=== PATIENT | male | born 1955 | race Caucasian/White ===

== ENCOUNTER 2024-04-22 19:22 | Observation (INO) | payer MEDICARE, SELFPAY ==
--- NOTE | ~2024-04-22 | US_ITS ---
EXAMINATION: US abdomen limited DATE: 04/23/2024 13:39 INDICATION: Abnormal liver function tests. TECHNIQUE: Multiple grayscale and Doppler ultrasound images of the abdomen were obtained. COMPARISON: None FINDINGS: The visualized portions of the head and body of the pancreas are normal. The liver is raciel l without focal lesion. There is normal flow in main portal vein. The gallbladder is absent. The comm on duct is normal and measures 5 mm. IMPRESSION: 1. Normal right upper quadrant ultrasound status post cholecystectomy. Reviewed, dictated and finalized at location A. [facility]
--- NOTE | ~2024-04-22 | MR_ITS ---
EXAMINATION: MR brain/brain stem wo con DATE: 04/23/2024 13:59 INDICATION: Increasing confusion and hallucinations. TECHNIQUE: Magnetic resonance imaging (MRI) of the brain and brainstem was performed without intraven ous contrast. Sequences included sagittal and axial T1-weighted SE, axial diffusion-weighted FS SE, a xial 3D SWAN, axial T2-weighted FLAIR, and axial T2-weighted FSE. Apparent diffusion coefficient (ADC ) maps were created. COMPARISON: Head CT dated 04/22/2024 FINDINGS: There are no areas of restricted diffusion to suggest acute infarction. No acute intracranial hemorrh age or abnormal intracranial mass lesion. There are a few scattered foci of signal loss on the suscep tibility weighted imaging consistent with old blood products related to chronic microhemorrhage such as in the setting of hypertension. There are scattered areas of nonspecific increased T2-weighted sig nal intensity in the cerebral white matter, predominantly involving the deep and periventricular whit e matter which is within normal limits for age and likely sequela of chronic small vessel ischemic di sease. There are no intraparenchymal signal abnormalities seen on the other pulse sequences. The vent ricles are symmetric and normal in size. There are no abnormal extra-axial fluid collections. Flow vo ids are seen in the cerebral arteries on the T2-weighted sequences consistent with their expected pat ency. Visualized orbits and soft tissues are unremarkable. Bilateral mastoid effusions. IMPRESSION: 1. No acute intracranial process. 2. A few small foci of susceptibility artifact consistent with sequela of chronic microhemorrhage suc h as in the setting of hypertension. 3. Mild scattered nonspecific white matter T2 hyperintensity which is within normal limits for age an d likely sequela of chronic small vessel ischemic disease. 4. Bilateral mastoid effusions. Reviewed, dictated and finalized at location L. CUTTER IMPRESSION: 1. No acute intracranial process. 2. A few small foci of susceptibility artifact consistent with sequela of chron ic microhemorrhage such as in the setting of hypertension. 3. Mild scattered nonspecific white matter T2 hyperintensity which is within no rmal limits for age and likely sequela of chronic small vessel ischemic disease . 4. Bilateral mastoid effusions.
--- NOTE | ~2024-04-22 | XR_ITS ---
CHEST RADIOGRAPH CLINICAL HISTORY: Cough . COMPARISON: None available TECHNIQUE: Single portable view of the chest. FINDINGS The cardiomediastinal silhouette is unremarkable. The lungs are clear. Visualized osseous structures and soft tissues are unremarkable. IMPRESSION: No focal infiltrate or effusion. Reviewed, dictated and finalized at location A. [facility] [employer]
--- NOTE | ~2024-04-22 | CT_ITS ---
History: Altered mental status with hallucinations PROCEDURE: CT head without contrast. COMPARISON: None TECHNIQUE: Axial imaging of the head performed from the skull base to the vertex without IV contrast. Sagittal a nd coronal reformations obtained. DLP: 681 mGy-cm FINDINGS: The ventricles are enlarged. The dilatation of the ventricles is proportional to the degree of sulcal prominence, not uncommon in the senescent brain. There is no mass, mass effect or midline shift. There is no abnormal extra-axial fluid collection or intracranial hemorrhage. Visualized paranasal sinuses are clear. The mastoid air cells are well aerated. No acute displaced fractures within the overlying cranium. Impression: No acute intracranial hemorrhage or suspicious mass effect. Reviewed, dictated and finalized at location A. UNDERLAY MACHINE OPERATOR Impression: No acute intracranial hemorrhage or suspicious mass effect.
[2024-04-22 19:31] VITALS: BP 134/72; PULSE 92; RESP 16; TEMP 36.3; O2SAT 95
--- NOTE | 2024-04-22 19:37 | ECG_ITS ---
Test Date: 2024-04-22 19:45:22 Measurements Intervals [place] Rate: 85 P: 55 ND: 199 QRS: 46 QRSD: 94 T: 52 QT: 374 QTc: 447 Interpretive Statements SINUS RHYTHM No previous ECG available for comparison Electronically Signed On 04-23-2024 13:55:55 TAX TECHNICIAN by Xavier Duque M.D.
[2024-04-22 19:43] LABS: Glucose Point of Care 83 mg/dl (65-105)
--- OUTSIDE RECORDS SUMMARY | 2024-04-22 19:51 | XMS_ITS ---
Author Organization [facility] Address [address] [facility] [address] [place] [address] Care Team Providers Care Glass Etcher Helper Name Role Phone Aminah Zapata [phone] REASON FOR VISIT letter Social History Sex Assigned At : Social History Observation Description Sex Assigned At Male Encounters Encounter Location Date Provider Diagnosis [facility] [address] [facility] [address] [place] [address] 12/12/2023 Aminah Zapata Plan Of Treatment No Information Progress Notes * ANALILIA PEREZDOB:1955 (68 yo M)Acc No.[id number]:12/12/2023 Patient: ANALILIA ALMENDAREZ :1955 A ge:68 Y S ex:Male Address:[address] [place] [address], [id number] * true * Date: Generated for August bridges/Clayton/eTransmitting on: 0 04/22/2024 07:51 PM MASTER OF CEREMONIES
--- OUTSIDE RECORDS SUMMARY | 2024-04-22 19:51 | XMS_ITS ---
Author Organization [email or web address] Address [address] [address] Care Team Providers Care Insecticide Expert Name Role Phone BennyAminah gonzalez Ike [phone] Medications Medication SIG (Take, Route, Frequency, Duration) Notes Start Date End Date Status Abilify 20 MG 1 tablet Oral Once a day for 90 days 03/13/2023 Active Social History Sex Assigned At : Social History Observation Description Sex Assigned At Male Encounters Encounter Location Date Provider Diagnosis [facility] [facility] [address] [facility] [address] [address] 01/29/2024 Aminah Zapata Bipolar disorder, current episode depressed, severe, without psychotic features F31.4 Assessments Encounter Date Diagnosis (ICD Code) Assessment Notes Treatment Notes Treatment Clinical Notes Section Notes 01/29/2024 Bipolar disorder, current episode depressed, severe, without psychotic features (ICD-10 - F31.4) Plan Of Treatment Medication Medication Name Sig Start Date Stop Date Notes Abilify 20 MG 1 tablet Oral Once a day for 90 days 024 Progress Notes * ANALILIA PEREZDOB:1955 (68 yo M)Acc No.[id number]:01/29/2024 Patient: ANALILIA ALMENDAREZ :1955 A ge:68 Y S ex:Male Address:[address] [place] [address], [address] * Refills Refill Abilify Tablet, 20 MG, Oral, 90, 1 tablet, Once a day, 90 days, Refills=0 * true * Date: Generated for August bridges/Clayton/Cheleitting on: 0 04/22/2024 07:51 PM CHAIRMAN AND CHIEF EXECUTIVE OFFICER
[2024-04-22 19:59] LABS: Basophils Percent Auto 0.5 % (0.2-1.2); Eosinophils Percent Auto 0.5 % (0-4.4); Hematocrit 40.2 % (42.0-52.0); Hemoglobin 13.5 g/dL (14.0-18.0); Immature Granulocyte Absolute 0.06 K/mm3 (0.00-0.031); Immature Granulocyte Percent A 0.7 % (0-0.5); Lymphocytes Absolute Auto 1.08 K/mm3 (0.9-3.2); Lymphocytes Percent Auto 12.8 % (18.3-44.2); Mean Corpuscular HGB Conc 33.6 g/dl (32-36); Mean Corpuscular Hemoglobin 32.2 pg (26-34); Mean Corpuscular Volume 95.9 fl (80-100); Mean Platelet Volume 9.6 fl (7.4-10.4); Monocytes Absolute Auto 0.5 K/mm3 (0.1-0.6); Monocytes Percent Auto 6.3 % (2.6-8.5); Neutrophils Absolute Auto 6.7 K/mm3 (1.3-6.7); Neutrophils Percent Auto 79.2 % (45.5-73.1); Platelet Count Result 171 k/mm3 (150-375); Red Blood Count 4.19 M/mm3 (4.6-6.20); White Blood Count 8.5 K/mm3 (4.5-10.0)
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
[2024-04-22] MEDS: THIAMINE 500 MG/NS 100 ML 500 MG/100 ML BAG 200 MG IVPB (20:07)
[2024-04-22 20:08] LABS: Ammonia < 9 umol/L (9-30)
[2024-04-22 20:09] LABS: Ethanol < 10 mg/dL (<10); INR 1.1; Prothrombin Time 14.1 Seconds (11.1-14.7)
[2024-04-22 20:17] LABS: Lactic Acid Reflex 0.9 mmol/L (0.7-2.0)
[2024-04-22 20:17] LABS: Alanine Aminotransferase 44 U/L (6-50); Albumin Level 4.4 g/dL (3.5-5.1); Alkaline Phosphatase 94 U/L (38-126); Anion Gap 14 mmol/L (4-12); Aspartate Amino Transferase 209 U/L (17-59); Bilirubin,Total 1.6 mg/dL (0.2-1.3); Blood Urea Nitrogen 30 mg/dL (9-20); Calcium 8.9 mg/dL (8.4-10.2); Carbon Dioxide 24 mmol/L (22-30); Chloride 102 mmol/L (98-107); Estimated CRCL calculation 39 ml/min; Estimated Glomerular Filt Rate 50; Glucose 86 mg/dL (65-110); Lipase 52 U/L (23-300); Magnesium 2.2 mg/dL (1.6-2.3); Potassium 4.8 mmol/L (3.4-5.0); Sodium 140 mmol/L (137-145)
[2024-04-22 20:25] LABS: NT Pro B Type Natriuretic Pept 311 pg/mL (19.9-100); Troponin I 0.059 ng/mL (0.000-0.034)
[2024-04-22 20:33] LABS: Influenza A QL RT-PCR Negative (Negative); Influenza B QL RT-PCR Negative (Negative); RSV RNA, RT-PCR Negative (Negative); SARS-CoV-2 RNA PCR Negative (Negative)
[2024-04-22 20:36] LABS: Add Urine Microscopic? YES; Appearance Urine Cloudy (Clear); Bacteria Urine None Seen /hpf; Bilirubin Urine 2+ (Negative); Blood Urine Negative (Negative); Color Urine Dark Yellow (Yellow); Glucose Urine UA Negative (Negative); Hyaline Casts Urine Present /lpf; Ketones Urine 3+ mg/dL (Negative); Leukocyte Esterase Ur Trace LEU/UL (Negative); Nitrate Urine Negative (Negative); Protein Urine 1+ mg/dL (Negative); RBC Urine 0-2 /hpf (0-2); Specific Grav Ur 1.029 (1.001-1.035); Squamous Epithelial Cell Urine Occasional /hpf (Few)
[2024-04-22 20:37] LABS: Barbiturate Screen Urine Negative (Negative); Benzodiazepines Screen Urine Negative (Negative)
[2024-04-22 20:38] LABS: Amphetamine Screen Urine Negative (Negative); Cocaine Screen Urine Negative (Negative); Methadone Screen Urine Negative (Negative); Opiate Screen Urine Negative (Negative); Phencyclidine Screen Urine Negative (Negative)
[2024-04-22 20:40] LABS: Procalcitonin 0.1 ng/mL
[2024-04-22 20:41] LABS: Base Excess ABG -2.5 mEq/l (+/-2.0); Device ROOM AIR; Fractional Inspired Oxygen 21 %; HCO3 ABG 20.5 mEq/l (22.0-26.0); Modified Allen's Test Pass; Oxygen Saturation ABG 96.8 % (95.0-100.0); Oxyhemoglobin 96.1 % THb (90.0-100.0); PCO2 ABG 30.7 mmHg (35.0-45.0); Site Drawn RIGHT RADIAL; pH ABG 7.443 (7.350-7.450)
[2024-04-22 20:47] LABS: Cannabinoid Screen Urine Negative (Negative)
[2024-04-22] MEDS: DEXTROSE 5%/0.9% SOD CHL 500 ML 100 ML IV CONT (20:47)
--- NOTE | 2024-04-22 20:54 | PCRCNOTE ---
ABG completed after ordered timeframe due to RT being with a critical patient. Nurse and Dr castrejon.
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
[2024-04-22 21:33] VITALS: BP 110/70; PULSE 86; RESP 15; O2SAT 96
[2024-04-22] MEDS: ASPIRIN 81 MG CHEWABLE TABLET 324 MG PO (22:36)
--- NOTE | 2024-04-22 22:37 | ECG_ITS ---
Test Date: 2024-04-22 22:38:01 Measurements Intervals [place] Rate: 87 P: 50 VT: 190 QRS: 49 QRSD: 93 T: 65 QT: 369 QTc: 445 Interpretive Statements SINUS RHYTHM Compared to ECG 04/22/2024 19:45:22 No significant changes Electronically Signed On 04-23-2024 13:57:44 HEAD MECHANIC by Xavier Duque M.D.
[2024-04-22 22:51] VITALS: BMI 23.6
--- NOTE | 2024-04-22 23:14 | ADMGEN ---
This patient, Augustine Rodriguez, was admitted to IMU Room 204-01. Patient/family oriented to hospital policies and general routines including ID bracelet, bed and alarms, visiting hours, pain management, procedures, bathroom and other care routines, personal items, smoking policy, room service/diet, and visiting hours. Information on how to activate the Rapid Response Team has been discussed. Patient/Family are encouraged to report perceived risks to care and to ask questions if they do not understand what they are told or what they should do.
[2024-04-22 23:24] LABS: Troponin I 0.054 ng/mL (0.000-0.034)
[2024-04-22 23:28] VITALS: BP 124/64; PULSE 90; RESP 16; TEMP 36.6; O2SAT 94
[2024-04-23] VITALS (12 sets, daily range): BP systolic 102–135; BP diastolic 61–83; PULSE 63–99; RESP 15–20; TEMP 36.3–37.2; O2SAT 94–96
--- NOTE | 2024-04-23 00:16 | ECHO_ITS ---
Patient Info Name: Augustine Rodriguez Age: 69 years : 1955 Gender: Male Ht: 69 in Wt: 160 lbs BSA: 1.88 m2 HR: 78 bpm BP: 104 / 62 mmHg Heart Rhythm: Sinus Rhythm Exam Date: 04/23/2024 9:11 AM Exam Location: Echo Lab Patient Status: Inpatient Admit Date: 04/22/2024 Staff Ordering Physician: Anushka Bennett PA-C Food Sampler: Rica Thornton RDCS Attending Provider: Franklyn Owen MD Referring Physician: Sabrina SHEETS; Exam Type: CA echo doppler color flow Study Info Indications - Elevated troponin Complete two-dimensional, color flow and Doppler transthoracic echocardiogram is performed. Summary 1. Complete two-dimensional, color flow and Doppler transthoracic echocardiogram is performed. 2. There is normal biventricular size and systolic function. 3. There is no significant valvular disease. Left Ventricle The left ventricle is normal in size and systolic function. The left ventricular ejection fraction is visually estimated to be 60-65%. Right Ventricle The right ventricle is normal in size and systolic function. Left Atria The left atrium is normal size. Right Atria The right atrium is normal size. Atrial Septum The atrial septum is not well visualized. Aortic Valve There is no echocardiographic evidence of aortic stenosis or regurgitation. Pulmonic Valve The pulmonic valve is not well visualized. There is no color Doppler evidence of pulmonic valve regurgitation. Mitral Valve The mitral valve is normal. There is no mitral regurgitation. Tricuspid Valve The tricuspid valve is grossly normal. There is trace tricuspid regurgitation. Pericardium/Pleural Pericardium is normal in appearance with no evidence for significant pericardial effusion. Inferior Vena Cava Inferior vena cava is not well visualized. Aorta The aortic root at the level of the sinus of Valsalva is dilated measuring 3.8 cm in diameter. Left Ventricular Outflow Tract Name Value Normal LVOT 2D LVOT Diameter 2.3 cm LVOT Doppler LVOT Peak Gradient 3 mmHg LVOT Mean Gradient 1 mmHg LVOT VTI 15 cm LVOT VTI/AV VTI Ratio 0.8 LVOT Stroke Volume 61 ml LVOT CO 5.5 l/min LVOT CI 2.9 l/min/m2 Pulmonic Valve Name Value Normal RVOT Doppler RVOT Peak Gradient 1 mmHg PV Doppler PV Peak Gradient 5 mmHg Mitral Valve Name Value Normal MV Doppler MV Decel [place] 366 cm/s2 MV PHT 52 ms MV Area (PHT) 4.2 cm2 4.0-5.0 MV Diastolic Function MV E Peak Velocity 66 cm/s MV A Peak Velocity 61 cm/s MV E/A 1.1 MV Decel Time 180 ms MV Annular TDI MV E/e' (Septal) 8.8 <=8.0 MV E/e' (Lateral) 6.9 <=8.0 MV E/e' (Average) 7.8 Tricuspid Valve Name Value Normal TV Regurgitation Doppler TR Peak Velocity 193 cm/s TR Peak Gradient 12 mmHg Aortic Valve Name Value Normal AV Doppler AV Peak Velocity 90 cm/s AV Peak Gradient 3 mmHg AV Mean Gradient 2 mmHg AV VTI 18 cm AV Area (Cont Eq VTI) 3.4 cm2 >=3.0 AV Area (Cont Eq Stepan) 3.7 cm2 AV Regurgitation 2D LVOT Area 4.1 cm2 Ventricles Name Value Normal LV Dimensions 2D/MM IVS Diastolic Thickness (2D) 1.2 cm 0.6-1.0 LVID Diastole (2D) 4.3 cm 4.2-5.8 LVIW Diastolic Thickness (2D) 0.7 cm 0.6-1.0 LVID Systole (2D) 3.0 cm 2.5-4.0 LVOT Diameter 2.3 cm LV Mass (2D Cubed) 126.67 g 88.00-224.00 LV Mass Index (2D Cubed) 67 g/m2 49-115 Relative Wall Thickness (2D) 0.31 LV Fractional Shortening/Ejection Fraction 2D/MM LV Fractional Shortening (2D) 30 % 25-43 LV EF (2D Teicholz) 57 % 52-72 LV Diastolic Volume (4C MOD) 103 ml LV EF (4C MOD) 56 % LV Diastolic Volume (2C MOD) 127 ml LV EF (2C MOD) 60 % LV Diastolic Volume (BP MOD) 117 ml 62-150 LV Diastolic Volume Index (BP MOD) 62 ml/m2 34-74 LV Systolic Volume (BP MOD) 51 ml 21-61 LV Systolic Volume Index (BP MOD) 27 ml/m2 11-31 LV EF (BP MOD) 56 % 52-72 LV Diastolic Length (4C) 8.4 cm LV Systolic Length (4C) 6.5 cm LV Stroke Volume (4C MOD) 58 ml Atria Name Value Normal LA Dimensions LA Volume (4C A-L) 51 ml LA Volume (BP A-L) 49 ml RA Dimensions RA Area (4C) 14.7 cm2 <=18.0 Report Signatures
[2024-04-23] MEDS: traZODone HCL 50 MG TABLET PO ×2 (00:52→20:57)
[2024-04-23 05:00] LABS: Hematocrit 38.2 % (42.0-52.0); Hemoglobin 12.5 g/dL (14.0-18.0); Mean Corpuscular HGB Conc 32.7 g/dl (32-36); Mean Corpuscular Hemoglobin 32.1 pg (26-34); Mean Corpuscular Volume 97.9 fl (80-100); Mean Platelet Volume 10.2 fl (7.4-10.4); Platelet Count Result 174 k/mm3 (150-375); White Blood Count 7.7 K/mm3 (4.5-10.0)
[2024-04-23 05:15] LABS: Alanine Aminotransferase 39 U/L (6-50); Albumin Level 4.1 g/dL (3.5-5.1); Alkaline Phosphatase 82 U/L (38-126); Anion Gap 9 mmol/L (4-12); Aspartate Amino Transferase 177 U/L (17-59); Bilirubin,Total 1.3 mg/dL (0.2-1.3); Blood Urea Nitrogen 32 mg/dL (9-20); Calcium 8.6 mg/dL (8.4-10.2); Carbon Dioxide 26 mmol/L (22-30); Chloride 105 mmol/L (98-107); Estimated CRCL calculation 59 ml/min; Estimated Glomerular Filt Rate > 60; Glucose 83 mg/dL (65-110); Magnesium 2.2 mg/dL (1.6-2.3); Potassium 4.1 mmol/L (3.4-5.0); Sodium 140 mmol/L (137-145)
[2024-04-23] MEDS: DEXTROSE 5%/0.9% SOD CHL 1,000 ML 75 ML IV CONT ×2 (05:38→23:38)
[2024-04-23 05:41] LABS: Iron 81 ug/dL (49-181)
[2024-04-23 05:50] LABS: Percent Iron Saturation 32 % (20-50)
[2024-04-23 05:52] LABS: Creatine Kinase 7381 U/L (55-170)
[2024-04-23 06:13] LABS: Hepatitis B Surface Antigen Negative (Negative)
[2024-04-23 06:16] LABS: Folic Acid 12.9 ng/mL (2.76->20)
[2024-04-23 06:19] LABS: HAV RESULT Negative (Negative); Hepatitis B Core IgM Result Negative (Negative)
[2024-04-23 06:30] LABS: Hepatitis C Virus Antibody Negative (Negative)
[2024-04-23] MEDS: THIAMINE HCL 200 MG/2 ML VIAL 100 MG IV PUSH (09:12)
[2024-04-23] MEDS: ARIPiprazole 10 MG TABLET 20 MG PO (09:12)
[2024-04-23] MEDS: ENOXAPARIN 40 MG/0.4 ML SYRINGE SUB-Q (09:12)
[2024-04-23 11:36] LABS: Glucose Point of Care 113 mg/dl (65-105)
[2024-04-23 16:39] LABS: Glucose Point of Care 155 mg/dl (65-105)
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
--- NOTE | 2024-04-23 18:15 | PC.NURSE ---
This patient, Augustine Rodriguez, was received from IMU on 04/23/24 at 1815. Patient/family oriented to unit policies and routines
[2024-04-23 18:45] LABS: Glucose Point of Care 110 mg/dl (65-105)
[2024-04-23 22:57] LABS: Glucose Point of Care 90 mg/dl (65-105)
[2024-04-24] VITALS: BP 125/91; PULSE 83; PULSE 85; RESP 18; TEMP 36.4; O2SAT 97
[2024-04-24 04:00] VITALS: PULSE 96
[2024-04-24 05:48] LABS: Glucose Point of Care 116 mg/dl (65-105)
[2024-04-24 07:52] VITALS: BP 151/61; PULSE 92; RESP 14; TEMP 36.4; O2SAT 100
[2024-04-24 08:00] VITALS: PULSE 84
[2024-04-24] MEDS: THIAMINE HCL 200 MG/2 ML VIAL 100 MG IV PUSH (08:07)
[2024-04-24] MEDS: ENOXAPARIN 40 MG/0.4 ML SYRINGE SUB-Q (08:07)
[2024-04-24] MEDS: ARIPiprazole 10 MG TABLET 20 MG PO (08:07)
[2024-04-24] MEDS: LORazepam INJ (*CRX) 2 MG/ML VIAL 1 MG IV PUSH (13:16)
--- NOTE | 2024-04-24 15:41 | PC.NURSE ---
On 04/24/24, the student, Betsy Newton, provided care and completed [facility] documentation on this patient. I have reviewed the student's documentation and agree with the findings.
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
[2024-04-24] MEDS: OLANZapine 5 MG, WATER, STERILE FOR INJECTION 2.1 ML IM (16:02)
[2024-04-24] MEDS: traZODone HCL 50 MG TABLET PO (20:13)
[2024-04-24 22:00] VITALS: BP 171/92; PULSE 130; RESP 18; O2SAT 96
[2024-04-25 01:10] LABS: Glucose Point of Care 91 mg/dl (65-105)
[2024-04-25 06:00] VITALS: BP 128/66; PULSE 100; RESP 18; TEMP 36.6; O2SAT 95
[2024-04-25 06:42] LABS: Glucose Point of Care 102 mg/dl (65-105)
[2024-04-25 08:00] VITALS: PULSE 100
--- NOTE | 2024-04-25 16:56 | PC.NURSE ---
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 Hospitalist aware of patients behavior. Patient is uncooperative with suggested care but not aggressive or combative. Sitter needed at all times as patient is up and moving around his room all day trying to exit into hallway. Spoke to daughter and POHannah Foster about patients lack of cooperation with treatment and behaviors. Patient has been observed to talk to imaginary people not in the room, going in the shower and randomly turning the shower head on to spray water on the boyd, and engage in conversations with the sitter that do not make sense.
[2024-04-25 19:47] VITALS: BP 136/86; PULSE 93; RESP 16; O2SAT 95
[2024-04-26 06:00] VITALS: BP 150/93; PULSE 111; RESP 18; O2SAT 93
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
[2024-04-26 22:00] VITALS: BP 121/71; PULSE 103; RESP 18; TEMP 36.7; O2SAT 94
[2024-04-27 06:00] VITALS: BP 142/71; PULSE 96; RESP 18; TEMP 36.6; O2SAT 92
[2024-04-27 08:19] LABS: Glucose Point of Care 115 mg/dl (65-105)
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
[2024-04-27 12:11] LABS: Glucose Point of Care 114 mg/dl (65-105)
[2024-04-27 14:00] VITALS: BP 121/82; PULSE 91; RESP 18; TEMP 36.5; O2SAT 95
[2024-04-27 17:02] LABS: Glucose Point of Care 105 mg/dl (65-105)
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
[2024-04-27] MEDS: ARIPiprazole 10 MG TABLET 20 MG PO (18:17)
[2024-04-27] MEDS: THIAMINE HCL 200 MG/2 ML VIAL 100 MG IV PUSH (18:30)
[2024-04-27 20:32] LABS: SARS-CoV-2 RNA PCR Negative (Negative)
[2024-04-27] MEDS: traZODone HCL 50 MG TABLET PO (21:24)
[2024-04-27 22:00] VITALS: BP 149/86; PULSE 118; RESP 18; TEMP 36.8; O2SAT 93
[2024-04-28 05:35] LABS: Mean Platelet Volume 9.8 fl (7.4-10.4); Platelet Count Result 202 k/mm3 (150-375)
[2024-04-28 06:00] VITALS: BP 133/70; PULSE 92; RESP 18; TEMP 36.6; O2SAT 95
[2024-04-28] MEDS: THIAMINE HCL 100 MG TABLET PO (09:16)
[2024-04-28] MEDS: ARIPiprazole 10 MG TABLET 20 MG PO (09:16)
[2024-04-28] MEDS: ENOXAPARIN 40 MG/0.4 ML SYRINGE SUB-Q (09:16)
[2024-04-28] MEDS: CITALOPRAM HYDROBROMIDE 20 MG TABLET 40 MG PO (09:16)
--- NOTE | 2024-04-28 10:03 | ECG_ITS ---
Test Date: 2024-04-28 11:38:00 Measurements Intervals [place] Rate: 90 P: 66 LA: 174 QRS: -3 QRSD: 96 T: 51 QT: 353 QTc: 432 Interpretive Statements SINUS RHYTHM Compared to ECG 04/22/2024 22:38:01 No significant changes Electronically Signed On 04-28-2024 15:02:50 CDT by Luan Johnson M.D.
[2024-04-28 10:49] LABS: Hematocrit 41.8 % (42.0-52.0); Hemoglobin 13.9 g/dL (14.0-18.0); Mean Corpuscular HGB Conc 33.3 g/dl (32-36); Mean Corpuscular Hemoglobin 32.3 pg (26-34); Mean Corpuscular Volume 97.2 fl (80-100); Red Cell Distribution Width 12.7 % (11.5-14.5); White Blood Count 6.3 K/mm3 (4.5-10.0)
[2024-04-28 11:08] LABS: Alanine Aminotransferase 29 U/L (6-50); Albumin Level 4.2 g/dL (3.5-5.1); Alkaline Phosphatase 73 U/L (38-126); Anion Gap 10 mmol/L (4-12); Aspartate Amino Transferase 43 U/L (17-59); Bilirubin,Total 0.6 mg/dL (0.2-1.3); Blood Urea Nitrogen 24 mg/dL (9-20); Calcium 8.9 mg/dL (8.4-10.2); Carbon Dioxide 26 mmol/L (22-30); Chloride 104 mmol/L (98-107); Estimated CRCL calculation 75 ml/min; Estimated Glomerular Filt Rate > 60; Glucose 156 mg/dL (65-110); Magnesium 2.1 mg/dL (1.6-2.3); Potassium 3.6 mmol/L (3.4-5.0); Sodium 140 mmol/L (137-145)
[2024-04-28 11:16] LABS: Troponin I < 0.012 ng/mL (0.000-0.034)
[2024-04-28 14:00] VITALS: BP 130/80; PULSE 94; RESP 18; TEMP 36.5; O2SAT 95
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
--- NOTE | 2024-04-28 16:31 | P.TS_ITS ---
Transfer Discharge Sum: Prov Provider Date of admission: 04/22/24 22:12 Primary care physician: Bren Lin, Admitting clinician: Milton Owen MD DS: Admitting Diagnosis Discharge Date 04/28/24 Admitting Diagnosis Confusion DS: Discharge Diagnosis Discharge Diagnosis (1) Altered mental status: Code(s): R41.82 - Altered mental status, unspecified Status: Acute (2) Elevated troponin: Code(s): R79.89 - Other specified abnormal findings of blood chemistry Status: Acute (3) Renal failure: Code(s): N19 - Unspecified kidney failure Status: Acute (4) Elevated LFTs: Code(s): R79.89 - Other specified abnormal findings of blood chemistry Status: Acute (5) Normocytic anemia: Code(s): D64.9 - Anemia, unspecified Status: Acute (6) Bipolar disorder: Code(s): F31.9 - Bipolar disorder, unspecified Status: Acute Transfer Discharge Sum: Med Medications Active and Home Medications: Home Medications aripiprazole 20 mg tablet (Abilify) 20 mg PO DAILY 04/22/24 [History Confirmed 04/22/24] citalopram 40 mg tablet 20 mg PO ONCE 04/22/24 [History Confirmed 04/22/24] trazodone 50 mg tablet 50 mg PO HS PRN sleep 04/22/24 [History Confirmed 04/22/24] naltrexone 50 mg tablet 50 mg PO QHS 04/24/24 [History Confirmed 04/24/24] Active Medications Aripiprazole (Aripiprazole 10 Mg Tablet) 20 mg PO QAM [facility] Last Admin: 04/28/24 09:16 Dose: 20 mg Citalopram Hydrobromide (Citalopram Hydrobromide 20 Mg Tablet) 40 mg PO QAM [facility] Last Admin: 04/28/24 09:16 Dose: 40 mg Enoxaparin Sodium (Enoxaparin 40 Mg/0.4 Ml Syringe) 40 mg SUB-Q DAILY BRITANY Last Admin: 04/28/24 09:16 Dose: 40 mg Thiamine HCl (Thiamine Hcl 100 Mg Tablet) 100 mg PO QAM [facility] Last Admin: 04/28/24 09:16 Dose: 100 mg Trazodone HCl (Trazodone Hcl 50 Mg Tablet) 50 mg PO HS PRN PRN Reason: sleep Last Admin: 04/27/24 21:24 Dose: 50 mg Transfer Discharge Sum: Hosp Hospital Course Hospital course: Augustine Rodriguez is a 69 year old male Time Spent with Patient Time attestation: Total time spent providing and/or coordinating transfer services: patient is poor historian does not provider any ROS, and wants to go home, to further evaluate patient had MRI of the brain did not show any acute injury but does show Mild scattered nonspecific white matter T2 hyperintensity which is within normal limits for age and likely sequela of chronic small vessel ischemic disease. Most likely patient has hypertensive encephalopathy, will continue to monitor and further recommendation to follow. on 04/23 Patient daughter who is his POA came to the hospital and gave updates. Today patient is more confused and agitated is pacing in the room does not want to sit, does not want to taked his medication, patient was given Ativan 2 mg IV 1 time keep the patient calm, patient was given zyprexa 5mg IM which did help, patient has history of bipolar refusing to take his medication, patient is again agitated and not cooperative, md do resident urgent care spoke with the patient's daughter, patient may not be able return home alone, Discussed with md do resident urgent care to possibly transfer patient [facility] I called [facility] and spoke with [facility] angel presented the case, they agree will try to transfer the patient. will wait and plan. still waiting to hear from the [facility] for tranfer, patinet is more interactive today and answers appropriately, the [facility] has requested current labs,trops and EKG, labs report are sent and waiting for the response. Patient is accepted at the [facility] will discharge today Exam Narrative: Patient is comfortable, NAD HEENT: eyes are clear and none icteric LUNGS:CTA HEART: RR S1S2 ABD: BS+, Soft and nontender Lower extremities: no edema SKIN: nonjaundiced Neuro: grossly intact. DS: Data Data Completed and Pending Labs on day of discharge: Labs from last 24 hours 04/28/24 04/27/24 04/27/24 05:11 19:48 16:55 WBC 6.3 RBC 4.30 L Hgb 13.9 L Hct 41.8 L MCV 97.2 MCH 32.3 MCHC 33.3 RDW 12.7 Plt Count 202 MPV 9.8 Sodium 140 Potassium 3.6 Chloride 104 Carbon Dioxide 26 Anion Gap 10 BUN 24 H Creatinine 0.79 Estim Creat Clear Calc 75 Estimated GFR > 60 Glucose 156 H POC Capillary Glucose 105 Calcium 8.9 Magnesium 2.1 Total Bilirubin 0.6 AST 43 ALT 29 Alkaline Phosphatase 73 Troponin I < 0.012 Total Protein 7.0 Albumin 4.2 SARS-CoV-2 RNA (RT-PCR) Negative
== END 2024-04-28 17:45 ==
LOC: ANHED 22:20 → ANHIMU 04-23 00:52 → ANH2MED 04-27 19:59 → ANHIMU 04-29 07:23
PROVIDERS: Physician Assistant; Admitting Provider Internal Medicine; Emergency Provider Emergency Medicine; PCP Internal Medicine Gastroenterology; Visit Provider Family Medicine
DX: R41.82 Altered mental status, unspecified (principal); R79.89 Other specified abnormal findings of blood chemistry; N19 Unspecified kidney failure; D64.9 Anemia, unspecified; F31.9 Bipolar disorder, unspecified; F10.20 Alcohol dependence, uncomplicated; K75.9 Inflammatory liver disease, unspecified; Z20.822 Contact with and (suspected) exposure to COVID-19; Z79.899 Other long term (current) drug therapy
CPT/HCPCS: 36415; 36600; 70450; 70551; 71045; 76705; 80053; 80074; 80307; 81001; 82077; 82140; 82550; 82607; 82728; 82746; 82805; 82948; 83540; 83550; 83605; 83690; 83735; 83880; 84145; 84443; 84484; 85018; 85025; 85027; 85049; 85610; 85730; 87086; 87635; 87637; 93005; 93306; 96365; 96372; 96375; 99285; A9270; G0378; J1650; J2060; J2359; J3411; J7042